=== PATIENT | male | born 1990 | race Caucasian/White ===

== ENCOUNTER 2018-09-14 15:01 | Emergency (ER) | payer OTHER ==
--- NOTE | 2018-09-14 15:31 | EDPHY ---
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 He explains that he was cleaning the oven and caring a heavy of an rack down a few stairs when he slipped on the stairs and in catching the rack, weight to the ground the sharp edge of the rack caused a laceration to his left ring finger palmar aspect with mild pain in bleeding that slowed with direct pressure prior to arrival. He denies any other injuries from the fall she says is quite a minor fall. ROS: Neuro: No numbness or tingling Musculoskeletal: No bony pain. No other injuries from the fall. 5 point review of symptoms is performed and otherwise negative with exception of pertinent positives and negatives listed in HPI and ROS Smoking Status: Former smoker Physical Exam: Physical Exam Vital signs are normal. General: No acute distress HEENT: Atraumatic. Eyes: Pupils equal and react to light. Extraocular motions are intact. Lungs: No respiratory distress. Cardiac: Brisk capillary refill is intact throughout. Pulses are 2+ and symmetric in the affected extremity. Skin: No rash or pallor. Extremities: Atraumatic normal except for left 4th finger The 4th finger: Patient has a 1.3 cm full-thickness laceration palmar aspect of the 4th finger with minimal bleeding. Subcutaneous tissue is exposed but appreciate no other injured structures. No foreign bodies appreciated on direct examination. There is no underlying bony tenderness. T Neuro: Alert and oriented x3 with no sensorimotor deficits. Constitutional: Initial Vital Signs Temperature (C) 36.7 C 09/14/18 15:07 Heart Rate 82 09/14/18 15:07 Respiratory Rate 16 09/14/18 15:07 Blood Pressure 146/88 H 09/14/18 15:07 O2 Sat (%) 96 09/14/18 15:07 O2 Delivery Mode Room Air Allergies/Adverse Reactions: No Known Allergies Allergy (Verified 09/14/18 15:06) Home Medications: Medication Instructions Recorded Adderall 10 MG (*) 09/14/18 Clonazepam 09/14/18 MDM/Departure - MDM Procedures: Digital block: After verbal consent, using a 50 50 mix of 0.5% Marcaine 2% plain lidocaine, 27 gauge needle, chlorhexidine scrub under sterile conditions- 3 injections were administered to the base of the affected finger, 8 mL with good effect. Patient tolerated this well. There were no complications. The wound is 1.5 cm. The wound was copiously irrigated with saline. The wound was explored for foreign bodies and none were found. The wound was prepped and draped in the normal sterile fashion. The edges were reapproximated using 4 0 Prolene with a P3 needle -4 running sutures with good hemostasis and cosmesis. The patient tolerated the procedure well. There were no complications. - Depart Disposition: Home, Routine, Self-Care Clinical Impression: Finger laceration Qualifiers: Encounter type: initial encounter Finger: ring finger Damage to nail status: without damage Foreign body presence: without foreign body Laterality: left Qualified Code(s): S61.215A - Laceration without foreign body of left ring finger without damage to nail, initial encounter Condition: Good Instructions: Finger Laceration (ED) Additional Instructions: Diagnosis: Finger laceration Plan: Keep the wound clean and dry for the next 2 days. Then removed the dressing and clean daily with warm soapy water No use of the affected finger for the next 2 days. After that, limited use of finger with a bandage and/or glove while at work. Return for suture removal in 10-12 days. Return sooner if you develop redness, discharge or other concerns for infection. Referrals: ELIER PARDO [Primary Care Provider] - As per Instructions
[2018-09-14] MEDS ORDERED: TDAP ADULT 0.5 ML INJ (BOOSTRIX) IM ONE (16:03)
[2018-09-14 16:29] VITALS: BP 138/82
== END 2018-09-14 16:18 | disposition home or self-care (01) ==
LOC: CED 15:01
PROC: 0HQGXZZ Repair Left Hand Skin, External Approach (ICD-10-PCS; principal; 2018-09-14)
DX: S61.215A Laceration without foreign body of left ring finger without damage to nail, initial encounter (principal); W26.8XXA Contact with other sharp object(s), not elsewhere classified, initial encounter; Y99.0 Civilian activity done for income or pay; Z23 Encounter for immunization
CPT/HCPCS: 90471-ER; 99283-ER